=== PATIENT | female | born 1995 | race Two or more races ===

== ENCOUNTER 2021-06-26 09:43 | Emergency (ER) | payer MEDICAID ==
[~2021-06-26] VITALS: Ht 172.7 cm; Wt 77.1 kg
[2021-06-26] MEDS ORDERED: SODIUM CHLORIDE 0.9% 2,000 ML IV ONE (10:00)
[2021-06-26] MEDS ORDERED: PROMETHAZINE HCL 25 MG/ML 1ML IV ONE (10:00)
[2021-06-26 11:30] LABS: Basophils # (auto) 0 10 ^3/uL (0-0.2); Basophils % (auto) 0.2 % (0.0-2.0); Eosinophils # (auto) 0 10 ^3/uL (0-0.8); Eosinophils % (auto) 0.1 % (0.0-7.0); Hemoglobin 13.8 g/dL (12.2-16.2); Lymphocytes # (auto) 1.2 10 ^3/uL (0.4-5.4); Lymphocytes % (auto) 8.4 % (10.0-50.0); Mean Corpuscular Hemoglobin 28.6 pg (28.0-32.0); Mean Corpuscular Hgb Conc. 33.7 g/dL (32.0-36.0); Mean Corpuscular Volume 84.8 fL (80.0-100.0); Monocytes # (auto) 0.4 10 ^3/uL (0-1.3); Monocytes % (auto) 3.1 % (0.0-12.0); Neutrophils # (auto) 12.6 10 ^3/uL (1.6-8.6); Neutrophils % (auto) 88.2 % (37.0-80.0); Red Blood Cells 4.84 10^6/uL (4.0-5.20); Red Cell Distribution Width 12.5 % (11.8-14.3); White Blood Cell 14.3 10^3/uL (4.4-10.8)
[2021-06-26 11:44] LABS: Albumin 4.1 g/dL (3.4-5.0); BUN/Creatinine Ratio 12.6
[2021-06-26 11:47] LABS: Bilirubin, Total 0.6 mg/dL (0.2-1.0); Total Protein 8.2 g/dL (6.4-8.2)
[2021-06-26 13:17] LABS: Urine Bacteria NONE SEEN /hpf (None Seen); Urine Blood Negative /uL (Negative); Urine Mucus FEW (None Seen); Urine Specific Gravity 1.025 (1.001-1.035); Urine WBC 1 /hpf (0 - 5)
[2021-06-26 16:17] VITALS: BP 130/74
[2021-06-26] MEDS ORDERED: CEPH-509 PO (16:19)
[2021-06-26] MEDS ORDERED: METR500T PO (16:19)
[2021-06-26] MEDS ORDERED: metroNIDAZOLE 500MG/100ML 100 ML IV ONE (16:30)
[2021-06-26] MEDS ORDERED: cefTRIAXone 1GM/50ML D5W 50 ML IV ONE (16:30)
== END 2021-06-26 16:19 | disposition home or self-care (01) ==
LOC: EDBD 09:43 → EDUNIT# 09:43 → ER 09:43
DX: K52.9 Noninfective gastroenteritis and colitis, unspecified (principal); E86.0 Dehydration; Z88.0 Allergy status to penicillin
CPT/HCPCS: 36415; 74176; 80053; 80320; 81001; 81025; 83690; 85025; 96361; 96374; 99285; J2550; J7030